=== PATIENT | male | born 1955 | race Caucasian/White ===

== ENCOUNTER 2016-09-10 16:10 | Emergency (ER) | payer MEDICARE ==
[~2016-09-10] VITALS: Ht 157.5 cm; Wt 54.5 kg
--- NOTE | 2016-09-10 16:19 | PD ---
HPI Chief Complaint: fall. Rib pain. Time Seen by Provider: 16:16 Travel History International Travel<30 days: No Contact w/Intl Traveler<30days: No Traveled to known affect area: No History of Present Illness HPI 60-year-old male presents to the emergency department via EMS status post fall at 5 AM this morning on a bus. He fell forward onto a metal bar injuring his left anterior lateral lower right thorax. He is complaining of rib pain and pain with deep breath. Pain is described as sharp and at worse an 8/10. Patient has a history of bad COPD and emphysema, and denies increased shortness of breath. He denies any other injury. He has no known drug allergies. [facility] Social History Alcohol Use: Yes Tobacco Use: Yes Substance Use: No Allergies-Medications (Allergen,Severity, Reaction): Coded Allergies: No Known Allergies (Unverified , 09/10/16) Reported Meds & Prescriptions Reported Meds & Active Scripts Active Lortab (Hydrocodone-Acetaminophen) 5-325 Mg Tab 1-2 Tab PO Q6H PRN Ibuprofen 600 Mg Tab 600 Mg PO Q6H PRN Review of Systems Except as stated in HPI: all other systems reviewed are Neg General / Constitutional: No: Fever Eyes: No: Visual changes HENT: No: Headaches Cardiovascular: No: Chest Pain or Discomfort Respiratory: Positive: Pleuritic Pain, Other (right lower rib pain), No: Shortness of Breath Gastrointestinal: No: Abdominal Pain Genitourinary: No: Dysuria Musculoskeletal: No: Pain Skin: No Rash Neurologic: No: Weakness Psychiatric: No: Depression Endocrine: No: Polydipsia Hematologic/Lymphatic: No: Easy Bruising Physical Exam Narrative GENERAL: Patient appears in no acute distress. SKIN: Warm and dry. Normal color. Normal turgor. HEAD: Atraumatic. Normocephalic. EYES: Pupils equal and round. No scleral icterus. No injection or drainage. ENT: No nasal bleeding or discharge. Mucous membranes pink and moist. Pharynx is normal. NECK: Trachea midline. Neck is supple and nontender. CARDIOVASCULAR: Regular rate and rhythm. RESPIRATORY: No accessory muscle use. Clear to auscultation. Breath sounds equal bilaterally. Patient has point tenderness in the right anterior lateral lower ribs along the T10-T11. No obvious deformity or crepitus is noted. GASTROINTESTINAL: Abdomen soft, non-tender, nondistended. Hepatic and splenic margins not palpable. MUSCULOSKELETAL: Extremities without clubbing, cyanosis, or edema. No obvious deformities. NEUROLOGICAL: Awake and alert. No obvious cranial nerve deficits. Motor grossly within normal limits. Five out of 5 muscle strength in the arms and legs. Normal speech. PSYCHIATRIC: Appropriate mood and affect; insight and judgment normal. Data Data Last Documented VS Vital Signs Date Time Temp Pulse Resp B/P Pulse Ox O2 Delivery O2 Flow Rate FiO2 09/10/16 16:35 98.0 84 17 136/80 95 Orders Ribs, Uni (W/Exp Cxr-Min 3vw) (09/10/16 16:19) Acetamin-Hydrocod 325-5 Mg (Aguilar 5-325 (09/10/16 16:30) MDM Medical Decision Making Medical Screen Exam Complete: Yes Emergency Medical Condition: Yes Differential Diagnosis Fall. Rib contusion. Thoracic pain. Rib fracture. Narrative Course Patient medically stable at time of exam. Patient is given Lortab 5/325 2 by mouth. Right rib series is ordered with chest x-ray. EKG is performed showing no significant acute changes. X-rays negative for fracture. Chest x-ray is clear for acute changes per radiologist. Patient be discharged home on ibuprofen 600 mg 4 times a day #40. Patient also given Lortab 5/325 one to 2 tabs every 6 hours when necessary #12. Patient is to use heat and ice to this area and follow-up as needed. Diagnosis Primary Impression: Contusion of right chest wall Qualified Code: S20.211A - Contusion of right chest wall, initial encounter Referrals: [facility] Patient Instructions: Narcotic given in the ED, General Instructions Additional Instructions: X-rays negative for fracture. Chest x-ray is clear for acute changes per radiologist. Patient be discharged home on ibuprofen 600 mg 4 times a day #40. Patient also given Lortab 5/325 one to 2 tabs every 6 hours when necessary #12. Patient is to use heat and ice to this area and follow-up as needed. Scripts Hydrocodone-Acetaminophen (Lortab)5-325 Mg Tab1-2 Tab PO Q6H PRN (PAIN) #12 TAB Prov:Delia Fernando MD 09/10/16 Ibuprofen 600 Mg [id number] Mg PO Q6H PRN (Pain/Inflammation) #40 TAB Prov:Delia Fernando MD 09/10/16 Disposition: 01 DISCHARGE HOME Condition: Stable Dainel Shankar Sep 10, 2016 16:19
[2016-09-10] MEDS ORDERED: ACETAMINOPHEN/HYDROcodone 325 MG/5 MG TAB PO ONE (16:30)
[2016-09-10 16:35] VITALS: BP 136/80; PULSE 84; RESP 17; TEMP 98; O2SAT 95
--- NOTE | 2016-09-10 17:21 | RADRPT ---
EXAM DATE/TIME: 09/10/2016 16:54 [facility] COMPARISON: No previous studies available for comparison. INDICATIONS : Generalized Right Rib pain after fall. MEDICAL HISTORY : None. SURGICAL HISTORY : None. ENCOUNTER: Initial ACUITY: 1 day PAIN SCORE: 10/10 LOCATION: Right Ribs. FINDINGS: Multiple views of the right ribs were performed. There is no evidence of displaced fracture. No madelin tructive lesions or areas of periosteal thickening are seen. Expiratory view of the chest is negativ e for pneumothorax. The mediastinal structures are midline. There are streaky parenchymal opacities of both apices, ligaments and for scarring on the right but m ore vague on the left and infiltrate would also be in the differential. Nothing significantly masslik e demonstrated. No pleural effusion. Heart size normal. Calcified granulomata are seen in the spleen. CONCLUSION: 1. No perceptible rib fracture. 2. No pneumothorax seen. 3. Biapical scarring. I don't have any priors and potential superimposed infiltrate on the left. Godwin Dent MD on September 10, 2016 at 17:16 Board Certified Radiologist. This report was verified electronically.
[2016-09-10] MEDS ORDERED: IBUP-232 PO (17:23)
[2016-09-10] MEDS ORDERED: HYDR-3533 PO (17:23)
--- NOTE | 2016-09-11 14:14 | EKG ---
Date Performed: 09/10/2016 Time Performed: 16:31:21 PTAGE: 61 years EKG: Sinus rhythm WITH SINUS ARRHYTHMIA SEPTAL MYOCARDIAL INFARCTION ABNORMAL ECG NO PREVIOUS TRACING DOCTOR: Leonardo Marshall Interpretating Date/Time 09/11/2016 14:14:09
== END 2016-09-10 22:35 | disposition home or self-care (01) ==
LOC: NEDAMB 16:10
DX: S20.211A Contusion of right front wall of thorax, initial encounter (principal); W18.39XA Other fall on same level, initial encounter; Y93.9 Activity, unspecified; Y92.89 Other specified places as the place of occurrence of the external cause; V79.88XA Bus occupant (driver) (passenger) injured in other specified transport accidents, initial encounter
CPT/HCPCS: 71101; 93005; 99283

== ENCOUNTER 2017-08-01 00:35 | Emergency (ER) | payer MEDICARE ==
[~2017-08-01] VITALS: Ht 162.6 cm; Wt 45.0 kg
[~2017-08-01 00:35] MED LIST: HYDR-3533 PO; IBUP-232 PO
[2017-08-01 00:41] VITALS: BP 149/87; PULSE 79; RESP 22; TEMP 97.5; O2SAT 97
--- NOTE | 2017-08-01 00:56 | PD ---
HPI Chief Complaint: Respiratory Symptoms Time Seen by Provider: 00:53 Travel History International Travel<30 days: No Contact w/Intl Traveler<30days: No Traveled to known affect area: No History of Present Illness HPI The patient is 62 year old male who presents to the [facility] emergency department with a history of shortness of breath that became worse earlier today. The patient reports having chronic dyspnea on exertion related to a diagnosis of lung cancer made 3 years ago and a history of COPD. The patient reports that he continues to smoke approximately 2 cigars daily. The patient is followed through the [facility] for his primary care. He denies having any lung surgery or chemotherapy related to his diagnosis of lung cancer. He reports that he's had a cough productive of yellow sputum that became clear again today. He denies having any known fevers. On review of systems otherwise, he denies having any neck pain, abdominal pain, vomiting, diarrhea, urinary symptoms, or neurologic symptoms. He reports having chest tightness with trying to take a deep breath. The patient was brought in by ambulance services. The patient's room air saturation was reportedly 94%. The patient was given 2 albuterol nebulizer treatments en route to this facility. [facility] Past Medical History Narrative Medical The patient's past medical history is significant for lung cancer- diagnosed 3 years ago, prostate cancer, COPD. Cancer: Yes COPD: Yes Tetanus Vaccination: Unknown Influenza Vaccination: No Past Surgical History Narrative Surgical The patient's past surgical history is significant for right inguinal hernia repair. Social History Alcohol Use: Yes Tobacco Use: Yes (2 cigars per day) Substance Use: No Allergies-Medications (Allergen,Severity, Reaction): Coded Allergies: No Known Allergies (Unverified Adverse Reaction, Unknown, 08/01/17) Reported Meds & Prescriptions Reported Meds & Active Scripts Active Levaquin (Levofloxacin) 500 Mg Tablet 500 Mg PO DAILY Medrol Dosepak (Methylprednisolone) 4 Mg Dspk 4 Mg PO DIRECTED Per Pharmacist direction Proair Respiclick Inh (Albuterol Sulfate) 90 Mcg/Act Aerp 2 Puff INH Q4-6H PRN Lortab (Hydrocodone-Acetaminophen) 5-325 Mg Tab 1-2 Tab PO Q6H PRN Ibuprofen 600 Mg Tab 600 Mg PO Q6H PRN Review of Systems Except as stated in HPI: all other systems reviewed are Neg General / Constitutional: No: Fever Eyes: No: Visual changes HENT: Positive: Congestion, No: Headaches Cardiovascular: Positive: Chest Pain or Discomfort (chest tightness with coughing and trying to take a deep breath), Dyspnea on exertion Respiratory: Positive: Cough, No: Shortness of Breath Gastrointestinal: No: Abdominal Pain Genitourinary: No: Dysuria Musculoskeletal: No: Pain Skin: No Rash Neurologic: No: Weakness Psychiatric: No: Depression Endocrine: No: Polydipsia Hematologic/Lymphatic: No: Easy Bruising Physical Exam Narrative General: The patient is a well-developed, cachectic appearing male, in no acute distress on my initial assessment Head and Neck exam: Head is normocephalic atraumatic. Eyes: EOMI, pupils are equal round and reactive to light. Nose: Midline septum with pink mucous membranes Mouth: Dentition unremarkable. Moist mucus membranes. Posterior oropharynx is not erythematous. No tonsillar hypertrophy. Uvula midline. Airway patent. Neck: No palpable lymphadenopathy. No nuchal rigidity. No thyromegaly. Cardiovascular: Regular rate and rhythm without murmurs, gallops, or rubs. Lungs: No accessory muscle use noted. No tripoding. No paroxysmal abdominal breathing. The patient has a frequent productive sounding cough on examination. The patient has decreased breath sounds in bilateral bases. Soft expiratory wheezes audible anteriorly. No rhonchi. Abdomen: Soft, without tenderness to palpation in all 4 quadrants of the abdomen. No guarding, rebound, or rigidity. Normal bowel sounds are audible. No tenderness on palpation of McBurney's point. Extremities: No clubbing, cyanosis, or edema. 2+ pulses in all 4 extremities. No calf tenderness on palpation. Back: No spinous process tenderness to palpation. No costovertebral angle tenderness to palpation. Neurologic Exam: Grossly nonfocal. Skin Exam: No rash noted. Intact skin that is warm and dry. Data Data Last Documented VS Vital Signs Date Time Temp Pulse Resp B/P (MAP) Pulse Ox O2 Delivery O2 Flow Rate FiO2 08/01/17 01:01 97 21 08/01/17 00:48 86 22 Simple Mask 08/01/17 00:41 97.5 149/87 (107) Orders Orders Complete Blood Count With Diff (08/01/17 00:54) Comprehensive Metabolic Panel (08/01/17 00:54) B-Type Natriuretic Peptide (08/01/17 00:54) Act Partial Throm Time (Ptt) (08/01/17 00:54) Prothrombin Time / Inr (Pt) (08/01/17 00:54) Magnesium (Mg) (08/01/17 00:54) Ckmb (Isoenzyme) Profile (08/01/17 00:54) Troponin I (08/01/17 00:54) Iv Access Insert/Monitor (08/01/17 00:54) Electrocardiogram (08/01/17 00:54) Ecg Monitoring (08/01/17 00:54) Oximetry (08/01/17 00:54) Oxygen Administration (08/01/17 00:54) Chest, Single Ap (08/01/17 00:54) Sodium Chloride 0.9% Flush (Ns Flush) (08/01/17 01:00) Methylprednisolone So Succ Inj (Solumedr (08/01/17 01:00) Albuterol-Ipratropium Neb (Duoneb Neb) (08/01/17 01:00) Albuterol Hfa Inh (Proair Hfa Inh) (08/01/17 03:15) Levofloxacin 500 Mg Premix Inj (Levaquin (08/01/17 03:15) Labs Laboratory Tests Test 08/01/17 01:07 White Blood Count 2.5 TH/MM3 Red Blood Count 5.01 MIL/MM3 Hemoglobin 15.4 GM/DL Hematocrit 45.4 % Mean Corpuscular Volume 90.5 FL Mean Corpuscular Hemoglobin 30.7 PG Mean Corpuscular Hemoglobin Concent 33.9 % Red Cell Distribution Width 14.9 % Platelet Count 93 TH/MM3 Mean Platelet Volume 10.4 FL CBC Comment AUTO DIFF Differential Total Cells Counted 100 Neutrophils % (Manual) 25 % Lymphocytes % 54 % Monocytes % 16 % Eosinophils % 4 % Basophils % 1 % Neutrophils # (Manual) 0.6 TH/MM3 Differential Comment FINAL DIFF MANUAL Platelet Estimate LOW Platelet Morphology Comment NORMAL Red Cell Morphology Comment NORMAL Prothrombin Time 11.1 SEC Prothromb Time International Ratio 1.1 RATIO Activated Partial Thromboplast Time 31.3 SEC Blood Urea Nitrogen 11 MG/DL Creatinine 0.83 MG/DL Random Glucose 101 MG/DL Total Protein 7.8 GM/DL Albumin 3.3 GM/DL Calcium Level 8.2 MG/DL Magnesium Level 1.9 MG/DL Alkaline Phosphatase 56 U/L Aspartate Amino Transf (AST/SGOT) 123 U/L Alanine Aminotransferase (ALT/SGPT) 116 U/L Total Bilirubin 0.8 MG/DL Sodium Level 144 MEQ/L Potassium Level 3.7 MEQ/L Chloride Level 109 MEQ/L Carbon Dioxide Level 31.4 MEQ/L Anion Gap 4 MEQ/L Estimat Glomerular Filtration Rate 93 ML/MIN Total Creatine Kinase 75 U/L Troponin I LESS THAN 0.02 NG/ML B-Type Natriuretic Peptide 40 PG/ML MDM Medical Decision Making Medical Screen Exam Complete: Yes Emergency Medical Condition: Yes Medical Record Reviewed: Yes Interpretation(s) Last Impressions Chest X-Ray 08/01/17 0054 Signed Impressions: Service Date/Time: Tuesday, August 01, 2017 01:06 - CONCLUSION: 1. Linear scarring or atelectasis right upper lobe. No acute findings. Multiple calcified granulomata in the spleen. Randolph Harley MD Vital Signs Date Time Temp Pulse Resp B/P (MAP) Pulse Ox O2 Delivery O2 Flow Rate FiO2 08/01/17 01:01 97 21 08/01/17 00:48 86 22 97 Simple Mask 08/01/17 00:41 97.5 79 22 149/87 (107) 97 Differential Diagnosis COPD exacerbation, versus pneumonia, versus pneumothorax, versus pleural effusion Narrative Course During the course of the patients emergency department visit, the patients history, examination, and differential diagnosis were reviewed with the patient. The patient was placed on a monitor and storage bin tender with oximetry and frequent blood pressure monitoring. The patient had IV access obtained and blood work sent for analysis. The patient was initially provided Solu-Medrol 125 mg IV, DuoNeb 2. The patients laboratory studies were reviewed and remarkable for a white count of 2.5, hemoglobin 15.4, platelets 93 with 54 lymphocytes, monocytes 16, CMP is remarkable for chloride of 109, anion gap 4, calcium 8.2, AST 123, ALT 116, troponin I less than 0.02, BNP 40, PT PTT within normal limits Radiology studies were reviewed and remarkable for a chest x-ray that shows a linear scarring or atelectasis in the right upper lobe, no acute findings, multiple calcified granulomata in the spleen. The patient was given Levaquin 500 mg IV. The patient was given 2 inhalations of a net developer programmer inhaler which was then dispensed to him. The patient will be discharged home with a prescription for a Medrol Dosepak taper, pro-air inhaler , Levaquin for chronic bronchitis exacerbation/COPD exacerbation. The patient is instructed to follow-up with the [facility] for reexamination in the next 2 days. The patient is encouraged to quit smoking. The patient is resting comfortably and feels better, is alert and in no distress. The patients results and examination findings were discussed with the patient. The repeat examination is unremarkable and benign. The history, exam, diagnostic testing, and current condition do not suggest any significant pathology to warrant further testing, continued ED treatment, admission, or surgical evaluation at this point. The vital signs have been stable. The patient does not have uncontrollable pain, intractable vomiting, or other significant symptoms. The patient's condition is stable and appropriate for discharge. The patient will pursue further outpatient evaluation with a primary care physician or other designated or consulting physician as indicated in the discharge instructions. The patient expressed understanding and was agreeable with this plan. Diagnosis Primary Impression: COPD exacerbation Additional Impression: Bronchitis Referrals: Primary Care Physician 2 days Patient Instructions: Acute Bronchitis (ED), COPD (Chronic Obstructive Pulmonary Disease) (ED), General Instructions Med/Other Pt SpecificInfo: Prescription(s) given Scripts Levofloxacin (Levaquin) 500 Mg Tablet 500 MG PO DAILY for Infection, #9 TAB 0 Refills Prov: Renata Gil MD 08/01/17 Methylprednisolone Dosepak (Medrol Dosepak) 4 Mg Dspk 4 MG PO DIRECTED, #1 DSPK 0 Refills Per Pharmacist direction Prov: Renata Gil MD 08/01/17 Albuterol Powder Inh (Proair Respiclick Inh) 90 Mcg/Act Aerp 2 PUFF INH Q4-6H Y for SHORTNESS OF BREATH, #1 INHALER 0 Refills Prov: Renata Gil MD 08/01/17 Disposition: DISCHARGE HOME Condition: Stable Renata Gil MD Aug 01, 2017 00:55
[2017-08-01] MEDS: RESP: ALBUTEROL 2.5 MG/IPRATROPIUM 0.5 MG NEB (SCH) INH (00:59)
[2017-08-01] MEDS ORDERED: SODIUM CHLORIDE 0.9% FLUSH 10 ML FLUSH IVF PRN (01:00)
[2017-08-01] MEDS ORDERED: methylPREDNISolone SOD SUCC 125 MG/2 ML VIAL IV PUSH ONE (01:00)
[2017-08-01 01:01] VITALS: O2SAT 97
[2017-08-01 01:15] LABS: HEMATOCRIT 45.4 % (39.0-51.0); HEMOGLOBIN 15.4 GM/DL (13.0-17.0); MEAN CELL VOLUME 90.5 FL (80.0-100.0); MEAN CORPUSCULAR HEMOGLOBIN 30.7 PG (27.0-34.0); MEAN CORPUSCULAR HGB CONC 33.9 % (32.0-36.0); MEAN PLATELET VOLUME 10.4 FL (7.0-11.0); PLATELET COUNT 93 TH/MM3 (150-450); RED BLOOD COUNT 5.01 MIL/MM3 (4.50-5.90); RED CELL DISTRIBUTION WIDTH 14.9 % (11.6-17.2); WHITE BLOOD COUNT 2.5 TH/MM3 (4.0-11.0)
[2017-08-01 01:26] LABS: INTERNATIONAL NORMALIZED RATIO 1.1 RATIO; PROTHROMBIN TIME - PATIENT 11.1 SEC (9.8-11.6)
--- NOTE | 2017-08-01 01:33 | RADRPT ---
EXAM DATE/TIME: 08/01/2017 01:06 [facility] COMPARISON: RIBS RIGHT(W PA CXR MIN 3VWS), September 10, 2016, 16:54. INDICATIONS : Shortness of breath. MEDICAL HISTORY : None. SURGICAL HISTORY : None. ENCOUNTER: Initial ACUITY: 1 day PAIN SCORE: 0/10 LOCATION: Bilateral chest FINDINGS: A single view of the chest demonstrates linear atelectasis or scarring in the right upper lobe. No fo khanh consolidation. Heart size normal. Mild hyperinflation. CONCLUSION: 1. Linear scarring or atelectasis right upper lobe. No acute findings. Multiple calcified granulomata in the spleen. Randolph Harley MD on August 01, 2017 at 1:26 Board Certified Radiologist. This report was verified electronically.
[2017-08-01 01:34] LABS: ALBUMIN 3.3 GM/DL (3.4-5.0); ALT (GPT) 116 U/L (12-78); AST (GOT) 123 U/L (15-37); BICARBONATE 31.4 MEQ/L (21.0-32.0); BLOOD UREA NITROGEN 11 MG/DL (7-18); CALCIUM 8.2 MG/DL (8.5-10.1); CHLORIDE 109 MEQ/L (98-107); CREATININE 0.83 MG/DL (0.60-1.30); GLOMERULAR FILTRATION RATE 93 ML/MIN (>89); GLUCOSE,RANDOM 101 MG/DL (74-106); MAGNESIUM 1.9 MG/DL (1.5-2.5); SODIUM (NA) 144 MEQ/L (136-145)
[2017-08-01 01:38] LABS: ALKALINE PHOSPHATASE 56 U/L (45-117); TOTAL BILIRUBIN ADULT 0.8 MG/DL (0.2-1.0); TOTAL PROTEIN 7.8 GM/DL (6.4-8.2); TROPONIN I LESS THAN 0.02 NG/ML (0.02-0.05)
[2017-08-01 01:49] LABS: BASOPHILS 1 % (0-2); LYMPHOCYTES 54 % (9-44); MONOCYTES 16 % (0-8); NEUTROPHIL # MANUAL DIFF 0.6 TH/MM3 (1.8-7.7); POLYS (SEG NEUTROPHILS) 25 % (16-70)
[2017-08-01] MEDS ORDERED: MEDR4PAK PO (03:04)
[2017-08-01] MEDS ORDERED: ALBU1AER5 INH (03:04)
[2017-08-01] MEDS ORDERED: LEVA500T33 PO (03:04)
[2017-08-01] MEDS ORDERED: LEVOFLOXACIN 500 MG PREMIX INJ 100 ML IV ONE (03:15)
[2017-08-01] MEDS ORDERED: ALBUTEROL SULFATE 90 MCG/ACT HFA 8 GM INHALER INH ONE (03:15)
--- NOTE | 2017-08-01 17:36 | EKG ---
Date Performed: 08/01/2017 Time Performed: 01:01:44 PTAGE: 62 years EKG: Sinus rhythm WITH SINUS ARRHYTHMIA SEPTAL MYOCARDIAL INFARCTION Consider anteroseptal myocardial infarctioin-age undeterminate. ABNORMAL ECG PREVIOUS TRACING : 09/10/2016 16.31 DOCTOR: Main Mcgowan Interpretating Date/Time 08/01/2017 17:36:25
== END 2017-08-01 04:14 | disposition home or self-care (01) ==
LOC: NEPC 00:35
DX: J44.1 Chronic obstructive pulmonary disease with (acute) exacerbation (principal); J42 Unspecified chronic bronchitis; R94.31 Abnormal electrocardiogram [ECG] [EKG]; C34.90 Malignant neoplasm of unspecified part of unspecified bronchus or lung; F17.290 Nicotine dependence, other tobacco product, uncomplicated; Z85.46 Personal history of malignant neoplasm of prostate; Z79.899 Other long term (current) drug therapy
CPT/HCPCS: 71045; 80053; 82550; 83735; 83880; 84484; 85007; 85027; 85610; 85730; 93005; 94640; 94664; 96365; 96375; 99285; J1956; J2930

== ENCOUNTER 2017-09-07 23:12 | Emergency (ER) | payer MEDICARE ==
[~2017-09-07 23:12] MED LIST changes: +ALBU1AER5 INH; +LEVA500T33 PO; +MEDR4PAK PO
[2017-09-07 23:22] VITALS: BP 103/64; PULSE 60; RESP 18; TEMP 97.8; O2SAT 95
--- NOTE | 2017-09-08 05:14 | PD ---
HPI Chief Complaint: Medical Clearance Time Seen by Provider: 05:14 Travel History International Travel<30 days: No Contact w/Intl Traveler<30days: No Traveled to known affect area: No History of Present Illness HPI Patient is a 62-year-old male very cachectic he says he has lung cancer but refused chemotherapy [facility] denies head trauma sleeping in the triage wall area for 4 hours he ambulates without difficulty no ataxia and no sign of head trauma and he will be safe to discharge the morning to follow-up with his own primary care doctor he has no complaint it seems that he just wants to sleep PFSH Past Medical History Medical History: Unable to Obtain Cancer: Yes COPD: Yes Tetanus Vaccination: Unknown Influenza Vaccination: No (april) Past Surgical History Surgical History: Unable to Obtain Social History Alcohol Use: Yes Tobacco Use: Yes (2 cigars per day) Substance Use: No (april) Allergies-Medications (Allergen,Severity, Reaction): Coded Allergies: No Known Allergies (Unverified Adverse Reaction, Unknown, 08/01/17) Reported Meds & Prescriptions Reported Meds & Active Scripts Active Levaquin (Levofloxacin) 500 Mg Tablet 500 Mg PO DAILY Medrol Dosepak (Methylprednisolone) 4 Mg Dspk 4 Mg PO DIRECTED Per Pharmacist direction Proair Respiclick Inh (Albuterol Sulfate) 90 Mcg/Act Aerp 2 Puff INH Q4-6H PRN Lortab (Hydrocodone-Acetaminophen) 5-325 Mg Tab 1-2 Tab PO Q6H PRN Ibuprofen 600 Mg Tab 600 Mg PO Q6H PRN Review of Systems Except as stated in HPI: all other systems reviewed are Neg Physical Exam Narrative GENERAL: Patient is eye patch over his right eye is very thin body habitus cachectic SKIN: Warm and dry. Tattoos all over his body including across his neck HEAD: Atraumatic. Normocephalic. Palpation of his head there is no swelling no hematoma denies pain denies trauma to his head EYES: Pupils equal and round. No scleral icterus. No injection or drainage. ENT: No nasal bleeding or discharge. Mucous membranes pink and moist. NECK: Trachea midline. No JVD. He has a tattoo of "F&%$ off" across his neck CARDIOVASCULAR: Regular rate and rhythm. RESPIRATORY: No accessory muscle use. Clear to auscultation. Breath sounds equal bilaterally. GASTROINTESTINAL: Abdomen soft, non-tender, nondistended. Hepatic and splenic margins not palpable. MUSCULOSKELETAL: Extremities without clubbing, cyanosis, or edema. No obvious deformities. Ambulatory without difficulty NEUROLOGICAL: Awake and alert. No obvious cranial nerve deficits. Motor grossly within normal limits. Five out of 5 muscle strength in the arms and legs. Normal speech. PSYCHIATRIC: Appropriate mood and affect; insight and judgment normal. Data Data Last Documented VS Orders Orders Ed Discharge Order (09/08/17 05:15) MDM Medical Decision Making Medical Screen Exam Complete: Yes Emergency Medical Condition: Yes Differential Diagnosis etoh intox , complictions of Lung CA other Narrative Course pt let to sleep thru the night and in AM able to ambulate without problems and has no signs or complaints of trauma to head or body safe for d/c home outpt follow up Diagnosis Primary Impression: Alcohol intoxication Qualified Codes: F10.920 - Alcohol use, unspecified with intoxication, uncomplicated Patient Instructions: Abuse of Alcohol (ED), General Instructions Disposition: 01 DISCHARGE HOME Condition: Good Bob Chiu MD Sep 08, 2017 05:14
== END 2017-09-08 06:42 | disposition home or self-care (01) ==
LOC: NEDAMB 23:12
DX: F10.920 Alcohol use, unspecified with intoxication, uncomplicated (principal); R64 Cachexia; C34.90 Malignant neoplasm of unspecified part of unspecified bronchus or lung; J44.9 Chronic obstructive pulmonary disease, unspecified; Z72.0 Tobacco use
CPT/HCPCS: 99283